=== PATIENT | female | born 1960 | race Native Hawaiian/Other Pacific Islander ===

== ENCOUNTER 2019-03-23 08:06 | Emergency (ER) | payer OTHER ==
[~2019-03-23] VITALS: Ht 154.9 cm; Wt 68.0 kg
[~2019-03-23 08:06] MED LIST: ATEN50TA36 PO
[2019-03-23 08:15] VITALS: TEMP 98.1
[2019-03-23] MEDS ORDERED: EUTHYROX50 MCG PO (08:40)
[2019-03-23] MEDS ORDERED: LEXAPRO20 MG PO (08:41)
[2019-03-23 08:51] LABS: PLATELET COUNT 191 K/uL (152-353)
[2019-03-23 09:10] LABS: POTASSIUM 4.1 mmol/L (3.6-5.2)
[2019-03-23 11:20] VITALS: BP 134/81
== END 2019-03-23 11:20 | disposition short-term general hospital (02) ==
LOC: ED 08:06
PROVIDERS: Emergency Medicine
DX: R07.89 Other chest pain (principal); I10 Essential (primary) hypertension; F17.210 Nicotine dependence, cigarettes, uncomplicated
CPT/HCPCS: 36415; 80053; 82150; 82550; 83690; 83735; 84484; 85027; 93005; 99284

== ENCOUNTER 2019-03-23 11:21 | Outpatient (CLI) | payer OTHER ==
[~2019-03-23 11:21] MED LIST changes: +EUTHYROX50 MCG PO; +LEXAPRO20 MG PO
== END 2019-03-23 12:46 | disposition short-term general hospital (02) ==
LOC: AMB 11:21
DX: R79.89 Other specified abnormal findings of blood chemistry (principal); R07.9 Chest pain, unspecified
CPT/HCPCS: A0425; A0427